=== PATIENT | male | born 1985 | race Caucasian/White ===

== ENCOUNTER 2021-11-15 13:41 | Emergency (ER) | payer OTHER ==
[~2021-11-15] VITALS: Ht 182.9 cm; Wt 82.0 kg
[2021-11-15 15:03] VITALS: BP 140/67
--- NOTE | 2021-11-15 15:13 | PHYS DOC ---
Past History Past Surgical History: No Surgical History Adult General Chief Complaint Chief Complaint: HEMORRHOIDS HPI HPI Patient is a 36-year-old male patient presented to the ED today complaining of 12 out of 10 rectal pain from hemorrhoids constipation for 5 days. He states he tried a suppository and an enema 2 hours prior to coming to the ED and was unsuccessful. Denies any fever, nausea, vomiting. Review of Systems Review of Systems Constitutional: Denies fever or chills [] Eyes: Denies change in visual acuity, redness, or eye pain [] HENT: Denies nasal congestion or sore throat [] Respiratory: Denies cough or shortness of breath [] Cardiovascular: No additional information not addressed in HPI [] GI: Reports constipation and hemorrhoids, denies nausea, vomiting, bloody stools or diarrhea [] : Denies dysuria or hematuria [] Musculoskeletal: Denies back pain or joint pain [] Integument: Denies rash or skin lesions [] Neurologic: Denies headache, focal weakness or sensory changes [] All other systems were reviewed and found to be within normal limits, except as documented in this note. Physical Exam Physical Exam Constitutional: Well developed, well nourished, no acute distress, non-toxic appearance. [] Abdomen: Bowel sounds normal, soft, no tenderness, no masses, no pulsatile masses. [] Rectal exam-external rectal area with small hemorrhoids, no internal hemorrhoids Skin: Warm, dry, no erythema, no rash. [] Back: No tenderness, no CVA tenderness. [] Extremities: No tenderness, no cyanosis, no clubbing, ROM intact, no edema. [] Neurologic: Alert and oriented X 3, normal motor function, normal sensory function, no focal deficits noted. [] Psychologic: Tearful Current Patient Data Vital Signs Vital Signs Date Time Temp Pulse Resp B/P (MAP) Pulse Ox O2 Delivery O2 Flow Rate FiO2 11/15/21 15:03 98.2 109 20 140/67 (91) 98 Room Air EKG EKG [] Radiology/Procedures Radiology/Procedures []PROCEDURE: ABDOMEN SUPINE & UPRIGHT XR ABDOMEN 2V History: Constipation Comparison: None. Technique: Upright and supine radiographs of the abdomen and pelvis Findings: Bowel gas pattern: Nonobstructive bowel gas pattern. No excessive stool burden. Free air: None. Abnormal calcifications: None. Bones: Normal. Other: None. Impression: 1. Nonobstructive bowel gas pattern. No excessive stool burden. Electronically signed by: Wes Urrutia MD (11/15/2021 3:46 PM) [facility] DICTATED AND SIGNED BY: WES URRUTIA MD DATE: 11/15/21 1545 CC: JALYN WHYTE APRN; EDWARDO HICKEY MD ~MTH0 0 Heart Score C/O Chest Pain: N/A Risk Factors: Risk Factors: DM, Current or recent (<one month) smoker, HTN, HLP, family history of CAD, obesity. Risk Scores: Risk Factors: DM, Current or recent (<one month) smoker, HTN, HLP, family history of CAD, obesity. Course & Med Decision Making Course & Med Decision Making Pertinent Labs and Imaging studies reviewed. (See chart for details) This is a 36-year-old male patient presented to the ED today complaining of rectal pain from hemorrhoids and constipation for 5 days. Abdomen supine and upright noted for nonobstructive bowel gas pattern otherwise no acute findings Patient was discharged to home. Bowel prep discussed, hemorrhoid management discussed. He states he is in the process of following up with hemorrhoid clinic next week. Dragon Disclaimer Dragon Disclaimer This electronic medical record was generated, in whole or in part, using a voice recognition dictation system. Departure Departure: Impression: Primary Impression: Hemorrhoids Additional Impression: Constipation Disposition: 01 HOME / SELF CARE / HOMELESS Condition: STABLE Referrals: EDWARDO HICKEY MD (PCP) follow up next week Patient Instructions: Constipation, Adult, Hemorrhoids, [id number] Additional Instructions: You were evaluated in the emergency room for constipation and hemorrhoids. Please use the prescribed medications as needed for constipation and hemorrhoids. Try and follow-up with your hemorrhoid clinic or general surgeon of your choice. Scripts Hydrocortisone (ANUSOL-HC) 30 Gm Cream..g. 1 LOULOU TP TID for 10 Days, #30 GM 0 Refills Prov: JALYN WHYTE APRN 11/15/21 Lidocaine/Prilocaine (LIDOCAINE-PRILOCAINE CREAM) 30 Gm Cream..g. 1 LOULOU TP Q6HRS, #30 GM 1 Refill apply to rectal area as needed for hemorrhoids Prov: JALYN WHYTE APRN 12/24/21 Problem Qualifiers Primary Impression: Hemorrhoids Hemorrhoid type: unspecified Qualified Codes: K64.9 - Unspecified hemorrhoids Additional Impression: Constipation Constipation type: unspecified constipation type Qualified Codes: K59.00 - Constipation, unspecified JALYN WHYTE [employer] Nov 15, 2021 15:13
--- NOTE | 2021-11-15 15:48 | RAD ---
XR ABDOMEN 2V History: Constipation Comparison: None. Technique: Upright and supine radiographs of the abdomen and pelvis Findings: Bowel gas pattern: Nonobstructive bowel gas pattern. No excessive stool burden. Free air: None. Abnormal calcifications: None. Bones: Normal. Other: None. Impression: 1. Nonobstructive bowel gas pattern. No excessive stool burden. Electronically signed by: Wes Urrutia MD (11/15/2021 3:46 PM) [facility]
[2021-11-15] MEDS ORDERED: MAGNESIUM CITRATE 296 ML SOLUTION. PO ONE (16:15)
[2021-11-15] MEDS ORDERED: BISACODYL TAB 5 MG TABLET.DR. PO STA (16:19)
[2021-11-15] MEDS ORDERED: LIDOCAINE 2% JELLY 6ML IN APPLICATOR. TP ONE (16:30)
[2021-11-15] MEDS ORDERED: HYDR30CR61 TP (17:04)
[2021-11-15] MEDS ORDERED: LIDO30CR2 TP (17:04)
== END 2021-11-15 17:09 | disposition home or self-care (01) ==
LOC: ER 13:41
DX: K64.9 Unspecified hemorrhoids (principal); K59.00 Constipation, unspecified
CPT/HCPCS: 74019; 99283-25